=== PATIENT | female | born 1950 | race Hispanic/Latino ===

== ENCOUNTER → 2017-12-10 | Outpatient (CLI) | payer OTHER | LOC: SHCH 13:38 | PROVIDERS: ATTEND Internal Medicine Cardiovascular Disease | DX: R94.31 Abnormal electrocardiogram [ECG] [EKG] (principal); I10 Essential (primary) hypertension; R06.00 Dyspnea, unspecified | CPT/HCPCS: 93306 ==

== ENCOUNTER → 2018-10-13 | Outpatient (CLI) | payer OTHER ==
[~2018-10-13] MED LIST: AMLO5TAB9 PO; ATOR20TA65 PO; FLUT16H NASAL; LATA7.5D OU; LEVO50TA11 PO; METO1TAB13 PO; PRED5TAB PO; SPIR50TA5 PO
[2018-10-13 16:10] LABS: CREATININE 0.9 mg/dL (0.5-1.5)
== END | disposition home or self-care (01) ==
LOC: LAB 15:26
PROVIDERS: ATTEND Neurological Surgery
DX: D35.2 Benign neoplasm of pituitary gland (principal)
CPT/HCPCS: 36415; 82565; 84520

== ENCOUNTER → 2018-10-19 | Outpatient (CLI) | payer OTHER ==
[~2018-10-19] MED LIST changes: +GADODIAMIDE 10 MMOL/20 ML ML IV ONE
== END | disposition home or self-care (01) ==
LOC: RAH 07:23
PROVIDERS: ATTEND Neurological Surgery
DX: D35.2 Benign neoplasm of pituitary gland (principal)
CPT/HCPCS: 70553; A9579

== ENCOUNTER → 2019-04-22 | Outpatient (CLI) | payer OTHER ==
[~2019-04-22] MED LIST changes: -GADODIAMIDE 10 MMOL/20 ML ML IV ONE
[2019-04-22 14:34] LABS: CREATININE 0.8 mg/dL (0.5-1.5)
== END | disposition home or self-care (01) ==
LOC: LAB 13:57
PROVIDERS: ATTEND Neurological Surgery
DX: D35.2 Benign neoplasm of pituitary gland (principal)
CPT/HCPCS: 36415; 82565; 84520

== ENCOUNTER 2020-01-09 13:58 | Emergency (ER) | payer OTHER ==
[~2020-01-09 13:58] MED LIST changes: +AMLO-257 PO; -AMLO5TAB9 PO
[2020-01-09 14:39] LABS: APPEARANCE,URINE CLOUDY (CLEAR); BILIRUBIN,URINE LARGE (NEGATIVE); COLOR,URINE RED (YELLOW); GLUCOSE, URINE (UA) 100 mg/dL (NEGATIVE); KETONES,URINE 15 mg/dL (NEGATIVE); LEUKOCYTE ESTERASE ,URINE LARGE (NEGATIVE); NITRATE,URINE POSITIVE (NEGATIVE); OCCULT BLOOD,URINE LARGE (NEGATIVE); PH,URINE 6.5 (5.0-8.0); PROTEIN,URINE >=300 mg/dL (NEGATIVE); UROBILINOGEN,URINE >=8.0 mg/dL (0.2-1.0)
[2020-01-09 14:41] LABS: RBC,URINE TNTC /HPF (0-1)
[2020-01-09 14:42] LABS: BACTERIA,URINE Rare /HPF (None Seen); SQUAMOUS EPITHELIAL CELL,UR None Seen /HPF (0-2)
[2020-01-09] MEDS ORDERED: CEFTRIAXONE SODIUM 1 GM ONE (14:53)
[2020-01-09] MEDS ORDERED: LIDOCAINE HCL-MPF 1% 2ML VIAL ONE (14:53)
== END 2020-01-09 15:22 | disposition home or self-care (01) ==
LOC: EDH 13:58
DX: N39.0 Urinary tract infection, site not specified (principal); I10 Essential (primary) hypertension
CPT/HCPCS: 81001; 87088; 96372; 99283; J0696; J3490

== ENCOUNTER → 2020-08-10 | Outpatient (CLI) | payer OTHER ==
[2020-08-10 11:12] LABS: CREATININE 0.8 mg/dL (0.5-1.5)
== END | disposition home or self-care (01) ==
LOC: LAB 10:41
PROVIDERS: ATTEND Neurological Surgery
DX: D35.2 Benign neoplasm of pituitary gland (principal)
CPT/HCPCS: 36415; 82565; 84520

== ENCOUNTER → 2020-08-16 | Outpatient (CLI) | payer OTHER ==
[~2020-08-16] MED LIST changes: +GADODIAMIDE 10 MMOL/20 ML VIAL IV ONE
== END | disposition home or self-care (01) ==
LOC: RAH 08:49
PROVIDERS: ATTEND Neurological Surgery
DX: D35.2 Benign neoplasm of pituitary gland (principal); D49.7 Neoplasm of unspecified behavior of endocrine glands and other parts of nervous system
CPT/HCPCS: 70553; A9579

== ENCOUNTER → 2023-07-30 | Outpatient (CLI) | payer BC ==
[~2023-07-30] MED LIST changes: -AMLO-257 PO; +ENOX40DI8 SQ; +FAMO-136 PO; -FLUT16H NASAL; +FOLI0.8T2 PO; -GADODIAMIDE 10 MMOL/20 ML VIAL IV ONE; +LACT10SO9 PO; -LATA7.5D OU; +LEVO100T12 PO; -LEVO50TA11 PO; -METO1TAB13 PO; +ONDA-104 PO; +PIPE3.379 IV; -SPIR50TA5 PO
== END | disposition home or self-care (01) ==
LOC: RAH 13:03
PROVIDERS: ATTEND Internal Medicine Gastroenterology
DX: R13.10 Dysphagia, unspecified (principal); R63.30 Feeding difficulties, unspecified
CPT/HCPCS: 74230; 92611

== ENCOUNTER → 2024-04-27 | Outpatient (CLI) | payer BC ==
[~2024-04-27] MED LIST changes: +GADOTERATE MEGLUMINE 10 MMOL/20 ML VIAL IV ONE; +PIPE3.3773 IV; -PIPE3.379 IV
== END | disposition home or self-care (01) ==
LOC: RAH 11:27
PROVIDERS: ATTEND Neuromusculoskeletal Medicine & OMM
DX: D35.2 Benign neoplasm of pituitary gland (principal); D14.2 Benign neoplasm of trachea
CPT/HCPCS: 70553; A9575